=== PATIENT | female | born 1970 | race Caucasian/White ===

== ENCOUNTER 2017-08-30 13:41 | Inpatient (IN) ==
[2017-08-30 14:36] LABS: Basophils % 0.2 % (0.0-0.8); Eosinophils # 0.1 10*3/uL (0.0-0.87); Eosinophils % 0.5 % (0.00-10.9); Hematocrit 40.4 VOL% (35.7-47.0); Hemoglobin 13.8 GM/DL (12.0-16.0); Immature Granulocytes % 1.7 %; Immature Granulocytes Absolute 0.31 #; Lymphocytes # 1.9 10*3/uL (1.4-4.0); Lymphocytes % 10.5 % (21.3-54.2); Mean Corpuscular HGB Conc 34.2 GM/DL (32-36); Mean Corpuscular Hemoglobin 31 PG (27-34); Mean Platelet Volume 11.3 FL (9.6-12.0); Monocytes % 5.2 % (1.7-12.7); Neutrophils # 15.1 10*3/uL (1.4-7.4); Neutrophils % 81.9 % (38.7-73.9); Platelet Count 315 T/CUMM (130-400); Red Blood Count 4.49 MC/CUMM (3.8-5.5); Red Cell Distribution Width 13.3 % (9.3-17.3); White Blood Count 18.4 T/CUMM (4-12)
[2017-08-30 14:41] LABS: PT Patient Result 10.5 SECS
[2017-08-30 14:54] LABS: Apearance,Urine CLEAR (Clear); Bilirubin,Urine Negative (Negative); Blood, Urine Negative (Negative); Glucose,Urine (UA) Negative (Negative); Ketones,Urine Negative (Negative); Mucus,Urine Few /LPF (Occasional); Nitrite,Urine Negative (Negative); Protein,Urine Negative; RBC,Urine 4 /HPF (0-4); Squamous Epithelial Cell,Urine Occasional /HPF (0-10); Urine Color Yellow (Yellow); Urine Specific Gravity 1.018 (1.001-1.035); WBC,Urine 1 /HPF (0-6)
[2017-08-30 14:55] LABS: Lactic Acid 1.1 MMOL/L (0.4-2.0)
[2017-08-30 15:04] LABS: Barbiturates Screen,Urine Negative (Negative); Benzodiazepines Screen,Urine Positive (Negative); Cannabinoid Screen,Urine Negative (Negative); Opiate Screen,Urine Negative (Negative); Phencyclidine Screen,Urine Negative (Negative)
[2017-08-30 15:05] LABS: Alanine Aminotransferase 22 U/L (13-56); Albumin 3.8 G/DL (3.4-5.0); Alkaline Phosphatase 113 U/L (45-117); Aspartate Amino Transferase 28 U/L (0-37); Calcium 8.4 MG/DL (8.5-10.1); Total Protein 7.9 G/DL (6.4-8.3)
[2017-08-30 15:06] LABS: Blood Urea Nitrogen 19 MG/DL (7-18); Glucose 130 MG/DL (74-106); Osmolality,Calculated 284.3 MOS/KG (273-304); Potassium 3.6 MMOL/L (3.5-5.1); Sodium 141 MMOL/L (136-145)
[2017-08-30] MEDS ORDERED: ONDANSETRON 4 MG/2 ML VIAL IV PRN (15:48)
[2017-08-30] MEDS ORDERED: MORPHINE 2 MG/1 ML SYRINGE IV PRN (15:48)
[2017-08-30] MEDS ORDERED: ACETAMINOPHEN 325 MG TABLET PO PRN (15:48)
[2017-08-30] MEDS: LACTATED RINGERS 1,000 ML IV SCH (18:45)
[2017-08-30] MEDS: KETOROLAC 30 MG/1 ML VIAL IV PRN (20:58)
[2017-08-30] MEDS: DOCUSATE SODIUM 100 MG CAPSULE PO SCH (21:03)
[2017-08-31] MEDS: KETOROLAC 30 MG/1 ML VIAL IV PRN ×4 (00:50→18:02)
[2017-08-31] MEDS: LACTATED RINGERS 1,000 ML IV SCH ×3 (02:24→19:56)
[2017-08-31] MEDS: PANTOPRAZOLE 40 MG TABLET PO SCH (08:48)
[2017-08-31] MEDS: DOCUSATE SODIUM 100 MG CAPSULE PO SCH ×2 (08:48→20:36)
[2017-08-31 09:45] LABS: Eosinophils # 0.1 10*3/uL (0.0-0.87); Eosinophils % 0.5 % (0.00-10.9); Hematocrit 36.4 VOL% (35.7-47.0); Hemoglobin 12.4 GM/DL (12.0-16.0); Immature Granulocytes % 0.4 %; Immature Granulocytes Absolute 0.04 #; Lymphocytes # 1.3 10*3/uL (1.4-4.0); Lymphocytes % 12.9 % (21.3-54.2); Mean Corpuscular HGB Conc 34.1 GM/DL (32-36); Mean Corpuscular Hemoglobin 30 PG (27-34); Mean Corpuscular Volume 88.3 FL (87-102); Mean Platelet Volume 10.9 FL (9.6-12.0); Monocytes # 0.6 10*3/uL (0.11-0.8); Monocytes % 5.7 % (1.7-12.7); Neutrophils # 7.9 10*3/uL (1.4-7.4); Neutrophils % 80.5 % (38.7-73.9); Platelet Count 241 T/CUMM (130-400); Red Blood Count 4.12 MC/CUMM (3.8-5.5); Red Cell Distribution Width 13.3 % (9.3-17.3); White Blood Count 9.8 T/CUMM (4-12)
[2017-08-31 10:13] LABS: Calcium 8.1 MG/DL (8.5-10.1); Osmolality,Calculated 281.4 MOS/KG (273-304); Potassium 3.8 MMOL/L (3.5-5.1)
[2017-09-01] MEDS: KETOROLAC 30 MG/1 ML VIAL IV PRN (03:58)
[2017-09-01] MEDS: LACTATED RINGERS 1,000 ML IV SCH ×3 (03:59→22:17)
[2017-09-01] MEDS: DOCUSATE SODIUM 100 MG CAPSULE PO SCH ×2 (09:56→22:22)
[2017-09-01] MEDS: PANTOPRAZOLE 40 MG TABLET PO SCH (09:56)
[2017-09-01] MEDS: ALBUTEROL/IPRATROPIUM 3 ML NEB RESP TX SCH ×2 (15:00→19:46)
[2017-09-02] MEDS: ALBUTEROL/IPRATROPIUM 3 ML NEB RESP TX SCH ×7 (02:20→23:10)
[2017-09-02] MEDS: PANTOPRAZOLE 40 MG TABLET PO SCH (09:46)
[2017-09-02] MEDS: DOCUSATE SODIUM 100 MG CAPSULE PO SCH ×2 (09:47→20:34)
[2017-09-02] MEDS: LACTATED RINGERS 1,000 ML IV SCH (22:24)
[2017-09-03] MEDS: ALBUTEROL/IPRATROPIUM 3 ML NEB RESP TX SCH ×5 (03:10→20:20)
[2017-09-03] MEDS: PANTOPRAZOLE 40 MG TABLET PO SCH (09:59)
[2017-09-03] MEDS: DOCUSATE SODIUM 100 MG CAPSULE PO SCH ×2 (09:59→20:00)
[2017-09-03] MEDS ORDERED: PIPERACILLIN/TAZOBACTAM 3,375 MG in SODIUM CHLORIDE 0.9% 100 ML IV SCH (15:30)
[2017-09-03 15:45] LABS: Basophils % 0.2 % (0.0-0.8); Eosinophils % 0.6 % (0.00-10.9); Hematocrit 35.4 VOL% (35.7-47.0); Hemoglobin 11.4 GM/DL (12.0-16.0); Immature Granulocytes % 2.9 %; Immature Granulocytes Absolute 0.15 #; Lymphocytes # 0.6 10*3/uL (1.4-4.0); Lymphocytes % 11.5 % (21.3-54.2); Mean Corpuscular HGB Conc 32.2 GM/DL (32-36); Mean Corpuscular Hemoglobin 30 PG (27-34); Mean Corpuscular Volume 92.7 FL (87-102); Mean Platelet Volume 11.4 FL (9.6-12.0); Monocytes # 0.3 10*3/uL (0.11-0.8); Monocytes % 6.2 % (1.7-12.7); NRBC # 0.02 10*3/uL; Neutrophils % 78.6 % (38.7-73.9); Platelet Count 230 T/CUMM (130-400); Red Blood Count 3.82 MC/CUMM (3.8-5.5); Red Cell Distribution Width 14.6 % (9.3-17.3); White Blood Count 5.1 T/CUMM (4-12)
[2017-09-03 16:11] LABS: Band Neutrophils 8 % (0-10); Burr Cells Few; Lymphocytes 10 % (20-55); Metamyelocytes 1 %; Myelocytes 1 %; Platelet Estimate Adequate; Segmented Neutrophils 68 % (50-85); Total Cells Counted 100
[2017-09-03] MEDS: PIPERACILLIN/TAZOBACTAM 3,375 MG in SODIUM CHLORIDE 0.9% 100 ML IV SCH (23:00)
[2017-09-03] MEDS: LACTATED RINGERS 1,000 ML IV SCH (23:00)
[2017-09-04] MEDS: ALBUTEROL/IPRATROPIUM 3 ML NEB RESP TX SCH ×6 (00:38→20:05)
[2017-09-04] MEDS: PIPERACILLIN/TAZOBACTAM 3,375 MG in SODIUM CHLORIDE 0.9% 100 ML IV SCH ×2 (00:40→11:28)
[2017-09-04] MEDS: LACTATED RINGERS 1,000 ML IV SCH (05:58)
[2017-09-04] MEDS: PANTOPRAZOLE 40 MG TABLET PO SCH (09:38)
[2017-09-04] MEDS: DOCUSATE SODIUM 100 MG CAPSULE PO SCH ×2 (09:38→21:51)
[2017-09-04] MEDS ORDERED: ALBUTEROL/IPRATROPIUM 3 ML NEB RESP TX PRN (11:23)
[2017-09-04] MEDS ORDERED: LEVOFLOXACIN 750 MG TABLET PO ONE (11:25)
[2017-09-04] MEDS ORDERED: LEVOFLOXACIN INJ 500 MG in PREMIX 1 EACH IV SCH (11:30)
[2017-09-04] MEDS ORDERED: MONTELUKAST 10 MG TABLET PO SCH (11:30)
[2017-09-04] MEDS ORDERED: CHLORHEXIDINE 0.12% ORAL RINSE 60 ML BOTTLE SWISH/SPIT SCH (21:00)
[2017-09-04] MEDS ORDERED: CLINDAMYCIN 300 MG CAPSULE PO SCH (21:00)
[2017-09-05] MEDS: ALBUTEROL/IPRATROPIUM 3 ML NEB RESP TX SCH ×2 (00:41→07:25)
[2017-09-05 05:12] LABS: Eosinophils % 0.1 % (0.00-10.9); Hematocrit 34.3 VOL% (35.7-47.0); Hemoglobin 11.5 GM/DL (12.0-16.0); Immature Granulocytes % 4.4 %; Immature Granulocytes Absolute 0.74 #; Lymphocytes # 0.5 10*3/uL (1.4-4.0); Lymphocytes % 2.9 % (21.3-54.2); Mean Corpuscular HGB Conc 33.5 GM/DL (32-36); Mean Corpuscular Hemoglobin 30 PG (27-34); Mean Platelet Volume 11.7 FL (9.6-12.0); Monocytes # 0.4 10*3/uL (0.11-0.8); Monocytes % 2.1 % (1.7-12.7); NRBC # 0.06 10*3/uL; Neutrophils # 15.3 10*3/uL (1.4-7.4); Neutrophils % 90.5 % (38.7-73.9); Platelet Count 157 T/CUMM (130-400); Red Blood Count 3.81 MC/CUMM (3.8-5.5)
[2017-09-05 05:20] LABS: White Blood Count 16.9 T/CUMM (4-12)
[2017-09-05 05:34] LABS: Band Neutrophils 12 % (0-10); Lymphocytes 3 % (20-55); Segmented Neutrophils 79 % (50-85); Total Cells Counted 100
[2017-09-05 05:35] LABS: Giant Platelets Few; Hypochromasia 1+; Platelet Estimate Normal
[2017-09-05 05:42] LABS: Calcium 7.3 MG/DL (8.5-10.1); Osmolality,Calculated 283.5 MOS/KG (273-304)
[2017-09-05 07:36] VITALS: BP 104/64
[2017-09-05] MEDS ORDERED: LEVOFLOXACIN 500 MG TABLET PO SCH (09:00)
[2017-09-05] MEDS ORDERED: LEVOFLOXACIN INJ 500 MG in PREMIX 1 EACH IV SCH (09:00)
[2017-09-05] MEDS ORDERED: DEXT 5% NACL 0.45% KCL 20 MEQ 20 MEQ/1,000 ML BAG IV SCH (09:30)
[2017-09-05 09:40] LABS: Allen Test Positive; Pt O2 Delivery Device Simple Mask
[2017-09-05 09:41] LABS: ABG HCO3 20.4 MMOL/L (20-26); ABG Oxygen Saturation 59.7 % (95-100); ABG PCO2 49.7 MM HG (35-48)
[2017-09-05 09:45] LABS: ABG PO2 35.2 MM HG (80-95)
[2017-09-05] MEDS ORDERED: CLINDAMYCIN INJ 600 MG in PREMIX 1 EACH IV SCH (10:00)
[2017-09-05] MEDS ORDERED: EPINEPHrine 1 MG/ML VIAL ONE (10:26)
[2017-09-05] MEDS ORDERED: SUCCINYLCHOLINE 200 MG/10 ML VIAL ONE (10:41)
[2017-09-05] MEDS ORDERED: ETOMIDATE 40 MG/20 ML VIAL IV ONE (10:41)
== END 2017-09-05 14:12 | disposition expired | DRG 199 ==
LOC: EDUNIT# → EDBD → N.ED 13:41 → N.EDINP 15:48 → N.3E 17:48
PROVIDERS: ADMIT Surgery; ATTEND Surgery